=== PATIENT | male | born 1965 | race Caucasian/White ===

== ENCOUNTER 2016-08-19 07:11 | Day surgery (SDC) | payer OTHER ==
[~2016-08-19 07:11] MED LIST: ACETAMINOPHEN 500 MG TABLET PO PRN; HYDROmorphone HCL 2 MG/ML VIAL IV PRN; MAG HYDROX/ALUMINUM HYD/SIMETH 30 ML UDC PO PRN; MAGNESIUM HYDROXIDE 30 ML UDC PO PRN; ONDANSETRON HCL/PF 2 MG/ML VIAL IV PRN; PROMETHAZINE HCL 25 MG in DEXTROSE 5 % IN WATER 50 ML IV PRN; RINGERS SOLUTION,LACTATED 1,000 ML IV PRN; ZOLPIDEM TARTRATE 5 MG TABLET PO PRN; ceFAZolin SODIUM 1 GM VIAL IV PRN; diphenhydrAMINE HCL 50 MG/ML VIAL IV PRN; oxyCODONE HCL/ACETAMINOPHEN 1 TAB TABLET PO PRN
--- OUTSIDE RECORDS SUMMARY | 2016-08-19 07:14 | XMS REPORT | Continuity of Care Document ---
:1965 Author Organization [facility] [place] [address] Care Team Providers Name Role Phone Unavailable Primary Care Provider Unavailable Source Comments This disclosure is being made pursuant to the [email or web address] program and maynot contain all information available regarding this patient.[facility] Active Allergies and Adverse Reactions Not on File Current Medications Be aware that medications may not be up to date as of this document. Alwaysverify current medications with the patient. Not on file Active Problems Not on file Social History Tobacco Use Types Packs/Day Years Used Date Never Assessed Plan of Care Health Maintenance Due Date Last Done Comments Retired-Pertussis Vaccine Adult 08/10/1983 Retired-Tetanus Vaccine Adult 08/10/1983 Colonoscopy 2014 Well Adult Visit 2014 Retired-INFLUENZA VACCINE 01/16/2015 Results from Last 3 Months Not on file
--- OUTSIDE RECORDS SUMMARY | 2016-08-19 07:15 | XMS REPORT | Continuity of Care Document ---
:1965 Author Organization [facility] ([facility]) Address [address] [place] [address] Phone [phone] Care Team Providers Name Role Phone oCry Holland Primary Care Provider [phone] Source Comments This disclosure is being made pursuant to the Care Everywhere program, applicable federal and state laws, and may not contain all informaitonavailable regarding this patient.[facility] ([facility]) Active Allergies and Adverse Reactions Allergen Noted Date Severity Reactions Comments No Known Allergies 07/14/2011 NO REACTION Current Medications Prescription Sig. Disp. Refills Start Date End Date Status atorvastatin (LIPITOR) Take 10 mg by mouth Active 10 mg tablet every evening. ibuprofen 200 mg tablet Take 400 mg by Active mouth every 6 hours as needed. hyoscyamine (LEVSIN) Take 125 mcg by Active 0.125 mg tablet mouth 4 times daily as needed. ergocalciferol (VITAMIN Take 1 Cap by mouth 12 Cap 0 09/20/2013 Active D2) 50,000 unit capsule every week. Indications: VITAMIN D DEFICIENCY diphenoxylate-atropine Take 2 Tabs by 120 Tab 3 11/15/2013 Active 2.5-0.025 mg per tablet mouth 2 times daily. Indications: DIARRHEA metroNIDAZOLE 500 mg Take 1 Tab by mouth 30 Tab 0 11/23/2013 Active tablet 3 times daily. Indications: Giardia paromomycin 250 mg Take 4 Caps by 120 Cap 0 11/23/2013 Active capsule mouth 3 times daily. Indications: Giardia Active Problems Not on file Social History Tobacco Use Types Packs/Day Years Used Date Current Every Day Smoker Cigarettes 1.5 37 Smokeless Tobacco: Never Used Tobacco Cessation:Counseling Given: Yes Comments: Alcohol Use Drinks/Week oz/Week Comments Yes Drionks 1-2 beers weekly. Last Filed Vital Signs Vital Sign Reading Time Taken Blood Pressure 119/80 11/15/2013 10:31 AM CDT Pulse 86 11/15/2013 10:31 AM CDT Temperature 37.3 C (99.1 F) 11/15/2013 10:31 AM CDT Respiratory Rate 16 10/05/2013 8:48 AM CDT Height 1.651 m (5' 5") 11/15/2013 10:31 AM CDT Weight 115.667 kg (255 lb) 11/15/2013 10:31 AM CDT Body Mass Index 42.43 11/15/2013 10:31 AM CDT Oxygen Saturation 98% 10/05/2013 9:37 AM CDT Plan of Care Health Maintenance Due Date Last Done Comments HCV Screening 1965 Hepatitis B Vaccine (1 of 3 - Primary Series) 1965 Tdap Vaccine 08/10/1975 Lipid Disorder Screening 1982 MMR Vaccine 1982 Td Vaccine 1982 Pneumococcal Vaccine (1 of 1 - PPSV23) 08/10/1983 Colonoscopy 2014 Prostate Cancer Screening 2014 Influenza Vaccine: Seasonal (#1) 12/17/2015 Results from Last 3 Months Not on file
[2016-08-19] MEDS ORDERED: RINGERS SOLUTION,LACTATED 1,000 ML IV ONE (07:36)
[2016-08-19] MEDS ORDERED: BUPIVACAINE HCL 50 ML VIAL IJ ONE ×2 (08:00)
--- NOTE | 2016-08-19 08:27 | OR ---
Operative Report - Dictated Report Narrative: Date: 08/19/2016 Physician: Christian Rascon M.D. Lumber Trimmer: Roney Cee PA-C Preoperative diagnosis: Left Carpal tunnel syndrome Postoperative diagnosis: Left Carpal tunnel syndrome Procedure: Open left carpal tunnel release Anesthesia: MAC plus local Complications: None Estimated blood loss: Minimal Tourniquet time: 15 Minutes at 250 mmHg Specimens: None Retained implants: None Drains: None Indications: Saman Is a 51 year-old male who has been followed in my clinic with complaints of carpal tunnel syndrome. Physical exam as well as diagnostic testing showed compression of the median nerve compatible with carpal tunnel syndrome. Conservative measures have failed including but not limited to activity modification, medications, and/or bracing. The risks, benefits, and alternatives were discussed in clinic. The risks being bleeding, infection, nerve, tendon, blood vessel injury, persistent pain, wound complications, weakness, palm pain, need for additional procedures, and persistent symptoms. Consent was obtained in the clinic. Procedure: After marking the correct extremity in the preoperative holding area, a timeout was performed in the operating room. IV antibiotics consisting of 2 g of Ancef were administered prior to the procedure. A well-padded tourniquet was applied to the operative upper arm. The arm was exsanguinated and the tourniquet was inflated to 250 mmHg. 0.5% Marcaine without epinephrine was infused into the projected incision site. Using Loupe magnification, a longitudinal incision was made in line with the longitudinal hypothenar crease, or approximately in line with the ring finger, from just distal to the wrist flexion crease and extending approximately 2.5 cm distally. Blunt dissection and hemostasis with bipolar cautery was carried out throught the subcutaneous tissue and palmar fascia down to the level of the transverse carpal ligament. Ragnel retractors were used to retract the surrounding soft tissue and provide good visualization of the transverse carpal ligament. The transverse carpal ligament was then sharply incised longitudinally with a 15-blade scalpel. A [place] elevator was then slid underneath the transverse carpal ligament distally, protecting the median nerve, and the remaining distal portion of the transverse carpal ligament was sharply divided. This was then repeated proximally to divide the remaining proximal portion. Tenotomy scissors were used to divide any remaining transverse carpal ligament and palmar fascia distally being careful to avoid the superficial palmar arch. The distal forearm fascia was released ensuring that the median nerve was completely decompressed utilizing tenotomy scissors. The median nerve was then carefully inspected. Once it was felt that all the tissues overlying the median nerve were completely released, the wounds were thoroughly irrigated with saline. Tourniquet was deflated and hemostasis was obtained with pressure as well as bipolar cautery. Once bleeding had resolved and there was no excessive bleeding, the wounds were closed with interrupted 4-0 nylon. Xeroform, 4 x 4's, soft roll, and a well- padded dorsal short arm wrist splint was applied. The patient was awoken and transferred to the post-anesthesia care unit in stable condition. All sponge, needle, blade, and instrument counts were correct prior to closing the wounds. Additional 0.5% Marcaine without epinephrine was infused into the skin edges for pain control.
[2016-08-19 09:51] VITALS: BP 112/69
[2016-08-19] MEDS ORDERED: SENNOSIDES/DOCUSATE SODIUM 1 TAB TABLET PO SCH (21:00)
== END 2016-08-19 07:12 | disposition home or self-care (01) ==
LOC: SUR 07:11
PROVIDERS: ATTEND Orthopaedic Surgery
PROC: 01N50ZZ Release Median Nerve, Open Approach (ICD-10-PCS; principal; 2016-08-19 08:00)
DX: G56.02 Carpal tunnel syndrome, left upper limb (principal); J44.9 Chronic obstructive pulmonary disease, unspecified; I25.10 Atherosclerotic heart disease of native coronary artery without angina pectoris; E78.5 Hyperlipidemia, unspecified; E03.9 Hypothyroidism, unspecified; K58.9 Irritable bowel syndrome, unspecified; G47.00 Insomnia, unspecified; F17.200 Nicotine dependence, unspecified, uncomplicated; Z68.38 Body mass index [BMI] 38.0-38.9, adult

== ENCOUNTER 2016-12-10 23:30 | Emergency (ER) | payer OTHER ==
[2016-12-10] MEDS ORDERED: METHYLPREDNISOLONE ACETATE 80 MG/ML VIAL IM ONE (23:53)
[2016-12-10] MEDS ORDERED: DEXAMETHASONE SOD PHOSPHATE 10 MG/ML VIAL IM ONE (23:53)
[2016-12-10] MEDS ORDERED: DEXAMETHASONE SOD PHOSPHATE 10 MG/ML VIAL ONE (23:55)
[2016-12-10] MEDS ORDERED: METHYLPREDNISOLONE ACETATE 80 MG/ML VIAL ONE (23:55)
--- NOTE | 2016-12-11 00:08 | ERNOTE ---
Integumentary HPI - General Presenting Symptoms: rash Time Seen by Provider: 12/10/16 23:49 Source: patient Exam Limitations: no limitations - Immun/Allergies/Home Medications Immunizations: IMMUNIZATION HX Immunizations Up to Date Yes History of Influenza Vaccine No Hx Pneumococcal Vaccination No Allergies/Adverse Reactions: Allergies Allergy/AdvReac Type Severity Reaction Status Date / Time No Known Allergies Allergy Verified 12/10/16 23:42 Home Medications: HOME MEDICATIONS Nitroglycerin [Nitrostat] 0.4 mg SL [id number] PRN 12/06/13 [Last Taken Unknown] Simvastatin [Zocor] 40 mg PO HS 12/06/13 [Last Taken Unknown] traZODone HCL [Desyrel] 300 mg PO HS 12/06/13 [Last Taken Unknown] Zolpidem Tartrate [Ambien] 10 mg PO HS PRN 07/12/14 [Last Taken Unknown] Acetaminophen [Tylenol] 1,000 mg PO TID PRN 08/18/16 [Last Taken Unknown] Albuterol Sulfate [Proventil Hfa] 2 puff IH Q4H PRN 08/18/16 [Last Taken Unknown ] Aspirin [Aspirin Enteric Coated] 325 mg PO DAILY 08/18/16 [Last Taken Unknown] lamoTRIgine [Lamictal] 150 mg PO BID 08/18/16 [Last Taken Unknown] Methylprednisolone [Medrol Dosepak] 4 mg PO DAILY #21 tab.ds.pk 12/11/16 [Last Taken Unknown] - Pain Pain Score: 5 - History of Present Illness Narrative: pt states he walked out into some brush a couple of weeks ago and had rash start the next day. He thought it was getting better but then his left leg worsened yesterday with blistering and weeping Location: Reports: lower extremity - bilateral Quality: Reports: painful Severity: moderate, severe Exposure: Reports: poison sami/oak Modifying Factors - (Improves): Reports: calamine lotion - helps a small amount Associated Symptoms: Reports: edema Review of Systems - Review of Systems Constitutional: Absent: recent illness EYE: Absent: vision changes ENT: Absent: nose congestion Respiratory: Absent: shortness of breath Cardiology: Absent: chest pain Skin: Present: See HPI Neurological: Present: tingling - in left foot when he first walks after having it up Endocrine: Present: no symptoms reported Hematologic/Lymphatic: Present: no symptoms reported Psych: Present: no symptoms reported - Patient's Past Medical History Patient History - Medical: Bipolar, GERD, Hypothyroidism, Other Patient History - Cardiac/Respiratory: Coronary Heart Disease, COPD, Hyperlipidemia, Myocardial Infarction Patient History - Cancer: No Hx of Cancer Patient History - Surgical Procedures: Colonoscopy, EGD, Ear Tubes, Other Patient History - Other: None - Family History Father Family History - Medical: , History Unknown Family History - Cardiac/Respiratory: History Unknown Family History - Cancer: History Unknown Mother Family History - Medical: , Seizures Family History - Cardiac/Respiratory: Other Family History - Cancer: No pertinent family hx Brother Family History - Medical: Diabetes Type 2 Family History - Cardiac/Respiratory: Other Family History - Cancer: No pertinent family hx - Social History Living Situations: home Abuse History: No History of abuse Psych History: Hx of Anxiety, Hx of Depression, Hx of Bipolar Disorder, Current tx/ever been on anti-depressants or anti-anxiety meds Smoking Status: Current every day smoker Have you smoked in the past 12 months: Yes Do you dip or chew tobacco: No Patient requests Smoking Cessation Consult: No Alcohol Use: none Drug Use: none - Immunizations Immunizations Up to Date: Yes Hx Pneumococcal Vaccination: No History of Influenza Vaccine: No Physical Exam - Physical Exam General Appearance: Present: wd/wn, alert, no apparent distress Head Exam: Present: normal inspection, no evidence of injury Eye Exam: Normal inspection: bilateral Respiratory: Present: no respiratory distress, no accessory muscle use Extremity Exam: Present: pedal edema - +2 left. Absent: calf tenderness, joint redness, joint swelling Neurological Exam: Present: alert, oriented, normal mood/affect Skin Exam: Present: skin rash - mildly erythematous papular/ vesicular rash on both LE left much worse than right. Both covered by calamine lotion. left weeping and edematous. No evidence of infection Lymphatic Exam: Present: no adenopathy ED Progress - Vital Signs Vital Signs: Vital Signs 12/10/16 23:33 Temperature 37.3 C Pulse Rate 101 H Respiratory 18 Rate Blood Pressure 129/76 - Progress/Reassessment Chief Complaint: Rash Departure Clinical Impression: Contact dermatitis and eczema due to plant - Departure Disposition: Home self-care Condition: Good Instructions: Contact Dermatitis Additional Instructions: begin with the prescription on Thursday. You may take benadryl for itching if needed. follow up with your regular doctor if not improving in 3-5 days Referrals: Ian Gee MD [Primary Care Provider] - Prescriptions: Methylprednisolone [Medrol Dosepak] 4 mg PO DAILY #21 tab.ds.pk
--- OUTSIDE RECORDS SUMMARY | 2016-12-11 00:14 | XMS REPORT | Clinical Summary ---
:1965 Author Organization [facility] [place] [address] Care Team Providers Name Role Phone Unavailable Primary Care Provider Unavailable Source Comments This disclosure is being made pursuant to the [employer] program and maynot contain all information available regarding this patient.[facility] Allergies Not on File Current Medications Be aware that medications may not be up to date as of this document. Alwaysverify current medications with the patient. Not on file Active Problems Not on file Social History Tobacco Use Types Packs/Day Years Used Date Never Assessed Sex Assigned at Date Recorded Not on file Last Filed Vital Signs Not on file Plan of Treatment Health Maintenance Due Date Last Done Comments Retired-Pertussis Vaccine Adult 08/10/1983 Retired-Tetanus Vaccine Adult 08/10/1983 Colonoscopy 2014 Well Adult Visit 2014 Retired-INFLUENZA VACCINE 01/16/2015 Results Not on filefrom Last 3 Months
[2016-12-11 00:15] VITALS: BP 131/69
== END 2016-12-11 00:13 | disposition home or self-care (01) ==
LOC: ER 23:30
DX: L24.7 Irritant contact dermatitis due to plants, except food (principal); F31.9 Bipolar disorder, unspecified; E78.5 Hyperlipidemia, unspecified; I50.9 Heart failure, unspecified; J44.9 Chronic obstructive pulmonary disease, unspecified; F17.200 Nicotine dependence, unspecified, uncomplicated

== ENCOUNTER 2016-12-13 09:57 | Emergency (ER) | payer OTHER ==
--- OUTSIDE RECORDS SUMMARY | 2016-12-13 10:27 | XMS REPORT | Clinical Summary ---
:1965 Author Organization [facility] [place] [address] Care Team Providers Name Role Phone Unavailable Primary Care Provider Unavailable Source Comments This disclosure is being made pursuant to the [employer] program and maynot contain all information available regarding this patient.[facility] Allergies Not on File Current Medications Be [...]
[2016-12-13] MEDS ORDERED: ACETAMINOPHEN 325 MG TABLET PO ONE (10:30)
[2016-12-13] MEDS ORDERED: MUPIROCIN 22 APPL TUBE TP ONE ×2 (10:30→10:43)
--- NOTE | 2016-12-13 10:41 | ERNOTE ---
Integumentary HPI - Narrative Date of Service: 12/13/16 - General Presenting Symptoms: other - Cellulitis Time Seen by Provider: 12/13/16 10:16 Source: patient, RN notes reviewed Exam Limitations: no limitations - Immun/Allergies/Home Medications Immunizations: IMMUNIZATION HX Immunizations Up to Date Yes History of Influenza Vaccine No Hx Pneumococcal Vaccination No Allergies/Adverse Reactions: Allergies Allergy/AdvReac Type Severity Reaction Status Date / Time No Known Allergies Allergy Verified 12/13/16 10:09 Home Medications: HOME MEDICATIONS Nitroglycerin [Nitrostat] 0.4 mg SL [id number] PRN 12/06/13 [Last Taken Unknown] Simvastatin [Zocor] 40 mg PO HS 12/06/13 [Last Taken Unknown] traZODone HCL [Desyrel] 300 mg PO HS 12/06/13 [Last Taken Unknown] Zolpidem Tartrate [Ambien] 10 mg PO HS PRN 07/12/14 [Last Taken Unknown] Acetaminophen [Tylenol] 1,000 mg PO TID PRN 08/18/16 [Last Taken Unknown] Albuterol Sulfate [Proventil Hfa] 2 puff IH Q4H PRN 08/18/16 [Last Taken Unknown ] Aspirin [Aspirin Enteric Coated] 325 mg PO DAILY 08/18/16 [Last Taken Unknown] lamoTRIgine [Lamictal] 150 mg PO BID 08/18/16 [Last Taken Unknown] Methylprednisolone [Medrol Dosepak] 4 mg PO DAILY #21 tab.ds.pk 12/11/16 [Last Taken Unknown] Sulfamethoxazole/Trimethoprim [Bactrim Ds] 1 tab PO BID #20 tab 12/13/16 [Last Taken Unknown] - History of Present Illness Narrative: Saman is a 51-year-old male who presents to the emergency department for cellulitis in his left lower leg. He was initially seen here 2 days ago with poison sami and was started on a Medrol Dosepak. His itching has improved, but the left leg has become edematous and red. The rash has also been weeping. He was noted to be running a fever of 103 this morning. He has been cleaning the area with saline and applying calamine lotion. He has no prior history of skin infections. He also has the rash and some redness on the right lower leg, but it is much less severe than what is present on the left leg. Location: Reports: lower extremity Quality: Reports: painful Exposure: Reports: poison sami/oak Associated Symptoms: Reports: rash, edema, fever Prior Treatment: Reports: recently seen, treated by physician. Denies: currently on antibiotics Review of Systems - Review of Systems Constitutional: Present: fever. Absent: chills, fatigue, malaise EYE: Present: no symptoms reported ENT: Present: no symptoms reported Respiratory: Present: cough. Absent: shortness of breath, wheezing Cardiology: Present: edema. Absent: chest pain Gastrointestinal/Abdominal: Absent: nausea, vomiting Genitourinary: Present: no symptoms reported Musculoskeletal: Absent: muscle pain, joint pain Skin: Present: rash, lesions, change in color. Absent: lumps Neurological: Present: headache. Absent: dizziness/light-headedness, weakness, numbness, tingling Endocrine: Present: no symptoms reported Hematologic/Lymphatic: Absent: easy bruising, easy bleeding Psych: Present: no symptoms reported - Patient's Past Medical History Patient History - Medical: Bipolar, GERD, Hypothyroidism, Other Patient History - Cardiac/Respiratory: Coronary Heart Disease, COPD, Hyperlipidemia, Myocardial Infarction Patient History - Cancer: No Hx of Cancer Patient History - Surgical Procedures: Colonoscopy, EGD, Ear Tubes, Other Patient History - Other: None - Family History Father Family History - Medical: , History Unknown Family History - Cardiac/Respiratory: History Unknown Family History - Cancer: History Unknown Mother Family History - Medical: , Seizures Family History - Cardiac/Respiratory: Other Family History - Cancer: No pertinent family hx Brother Family History - Medical: Diabetes Type 2 Family History - Cardiac/Respiratory: Other Family History - Cancer: No pertinent family hx - Social History Living Situations: home Abuse History: No History of abuse Psych History: Hx of Anxiety, Hx of Depression, Hx of Bipolar Disorder, Current tx/ever been on anti-depressants or anti-anxiety meds Smoking Status: Current every day smoker Cigarettes Packs Per Day: 1.5 Have you smoked in the past 12 months: Yes Alcohol Use: none Drug Use: none - Immunizations Immunizations Up to Date: Yes Hx Pneumococcal Vaccination: No History of Influenza Vaccine: No Physical Exam - Physical Exam General Appearance: Present: wd/wn, alert, no apparent distress, obese Respiratory: Present: no respiratory distress, no accessory muscle use, expiration (prolonged), wheezing Cardiovascular/Chest: Present: no murmur, tachycardia Extremity Exam: Present: normal range of motion, extremity edema - mild - right lower leg, ankle; moderate - left lower leg, ankle,foot. Absent: joint redness , joint swelling Neurological Exam: Present: alert, oriented, normal mood/affect, no motor/ sensory deficits Skin Exam: Present: warm/dry, skin rash - Maculopapular eruption with some blistering and weeping with surrounding erythema to both lower legs - much worse on left ED Progress - Results and Orders Patient's Lab Results:: I have reviewed the patient's lab results. Results and Orders: WBC 24.2 - patient is on Medrol dose pack - Vital Signs Patient's Vital Signs:: I have reviewed the patient's vital signs. Vital Signs: Vital Signs 12/13/16 10:04 Temperature 38.7 C H Pulse Rate 123 H Respiratory 16 Rate Blood Pressure 153/82 O2 Sat by Pulse 98 Oximetry - Progress/Reassessment Chief Complaint: Cellulitis Progress:: Unchanged Plan - Plan Plan: Culture obtained from left leg drainage. Rocephin given IM now and Mupirocin ointment applied. Will d/c home on Bactrim pending cuture results. Discussed returning for vomiting or worsening pain/fevers. Patient in agreement with plan. Also to stop Medrol dose pack as his itching as subsided. Departure Clinical Impression: Cellulitis of both lower extremities - Departure Disposition: Home Follow Up Needed Condition: Stable Instructions: Cellulitis, Adult, [id number], Form - Excuse from Work, School , or Physical Activity Additional Instructions: Clean legs with soap and water twice a day, apply mupirocin ointment, cover with light dressing as needed Elevate legs as much as possible Stop Medrol dose pack Return for vomiting or other worsening symptoms as needed Tylenol for fever Referrals: Ian Gee MD [Primary Care Provider] - Prescriptions: Sulfamethoxazole/Trimethoprim [Bactrim Ds] 1 tab PO BID #20 tab
[2016-12-13] MEDS ORDERED: ACETAMINOPHEN 325 MG TABLET ONE (10:42)
[2016-12-13] MEDS ORDERED: LIDOCAINE HCL 20 ML VIAL ONE (10:44)
[2016-12-13 10:51] LABS: Hematocrit 42.8 % (42.0-52.0); Hemoglobin 14.5 gm/dL (13.5-18.0); Mean Cell Volume 90.7 fl (78-100); Mean Corpuscular Hemoglobin 30.7 pg (27-31); Mean Corpuscular Hgb Conc 33.9 g/dl (32-36); Mean Platelet Volume 8.7 fl (6.0-9.5); Platelet Count 300 K/mm3 (150-450); Red Blood Count 4.72 M/mm3 (4.7-6.0); Red Cell Distribution Width 12.2 % (11.5-14.0); White Blood Count 24.2 K/mm3 (4.0-10.5)
[2016-12-13 10:55] VITALS: BP 145/77
[2016-12-13 11:05] LABS: Total Cells Counted 100
[2016-12-13 11:26] LABS: Lymphocyte 11 % (20-51); Monocyte 9 % (0-9); Neutrophil 80 % (42-75); Neutrophil # 19.4 K/mm3 (1.3-6.0)
[2016-12-13 11:27] LABS: Platelet Estimate Normal (NORMAL); RBC Morphology Normal (NORMAL)
== END 2016-12-13 11:04 | disposition home or self-care (01) ==
LOC: ER 09:57
DX: L03.116 Cellulitis of left lower limb (principal); L03.115 Cellulitis of right lower limb; F31.70 Bipolar disorder, currently in remission, most recent episode unspecified; E78.5 Hyperlipidemia, unspecified